=== PATIENT | female | born 1980 | race Two or more races ===

== ENCOUNTER 2024-05-14 06:28 | Day surgery (SDC) | payer OTHER ==
[2024-05-12 09:44] LABS: HEMATOCRIT 42.7 % (36.0-45.00); HEMOGLOBIN 14.8 g/dL (12.0-15.00); MEAN CELL VOLUME 89.7 fL (80.00-100.00); MEAN CORPUSCULAR HGB CONC 34.5 g/dl (32.0-36.0); PLATELET COUNT 209 K/uL (150-450); RED BLOOD COUNT 4.76 M/uL (4.00-6.00); RED CELL DISTRIBUTION WIDTH 14.1 % (11.5-14.5)
[2024-05-12 10:09] LABS: INR 0.99; PARTIAL THROMBOPLASTIN TIME 28.2 SECONDS (22.0-34.0)
[2024-05-12 10:10] LABS: PH,URINE 5.5 (5.0-8.0); URINE APPEARANCE Clear; URINE BILIRRUBIN Negative (NEGATIVE); URINE BLOOD Large; URINE COLOR Yellow; URINE GLUCOSE Negative (NEGATIVE); URINE KETONE Negative (NEGATIVE); URINE LEUKOCYTE Small; URINE NITRATE Negative; URINE PROTEIN Negative (NEGATIVE); URINE UROBILINOGEN 0.2 E.U./dl
[2024-05-12 10:11] LABS: PROTHROMBIN TIME 10.4 SECONDS (9.0-11.5)
[2024-05-12 10:12] LABS: URINE BACTERIA 298.5 uL (0.0-1933); URINE EPITHELIAL CELLS 14.3 uL (0.0-38.8); URINE RBC 118.4 uL (0.0-20.8); URINE WBC 21.4 uL (0.0-23.2)
[2024-05-12 10:16] LABS: URINE CAST 0.15 uL (0.0-1.40)
[2024-05-12 10:21] LABS: ALBUMIN 3.9 gm/dL (3.4-5.0); BILIRUBIN TOTAL 0.43 mg/dL (0.3-1.2); CREATININE SERUM 0.98 mg/dL (0.55-1.02); GFR 61.65; GLOBULINA 2.9 G/DL (2.4-3.5); POTASSIUM 4.34 mEq/L (3.5-5.1); TOTAL PROTEIN 6.8 gm/dL (6.4-8.2)
[2024-05-14] MEDS ORDERED: POVIDONE-IODINE 118 ML BOTT TOP ONE (10:30)
[2024-05-14] MEDS ORDERED: KETOROLAC TROMETHAMINE 30 MG VIAL IV STA (10:56)
== END 2024-05-14 15:55 | disposition home or self-care (01) ==
LOC: CIR.AMB 06:28
PROVIDERS: ATTEND Obstetrics & Gynecology
DX: N75.1 Abscess of Bartholin's gland (principal)